=== PATIENT | male | born 1985 | race Caucasian/White ===

== ENCOUNTER 2017-09-25 16:35 | Emergency (ER) | payer OTHER ==
[2017-09-25] MEDS ORDERED: NS 1,000 ML IV ONE (16:39)
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
[2017-09-25 17:32] LABS: PLATELET COUNT 235 10^3/uL (150-400)
[2017-09-25] MEDS ORDERED: IOPAMIDOL (ISOVUE-300) 100 ML BTL ONE (18:00)
[2017-09-25 18:02] LABS: INR 1.02 (0.83-1.16); PROTIME(PATIENT) 13.6 SEC (12.0-15.0)
[2017-09-25 20:15] VITALS: BP 138/62
== END 2017-09-25 20:17 | disposition home or self-care (01) ==
DX: S63.502A Unspecified sprain of left wrist, initial encounter (principal); E86.9 Volume depletion, unspecified; V49.60XA Unspecified car occupant injured in collision with unspecified motor vehicles in traffic accident, initial encounter; Y92.410 Unspecified street and highway as the place of occurrence of the external cause
CPT/HCPCS: G0480; L3908; Q9967